=== PATIENT | male | born 1990 | race Caucasian/White ===

== ENCOUNTER 2019-12-08 20:51 | Emergency (ER) | payer OTHER, SELFPAY ==
[2019-12-08 20:53] VITALS: BP 139/67; PULSE 82; RESP 16; TEMP 36.4; O2SAT 100
--- NOTE | 2019-12-08 22:13 | ED_ITS ---
I attest that this documentation has been prepared under the direction and in the presence of Davey Palomo MD. Darío Reece, Ivisiblakhwinder 12/08/19;22:13 HPI - Dental/Oral General Chief complaint: Dental/Oral Stated complaint: dental pain Time Seen by Provider: 12/08/19 22:09 Source: patient Mode of arrival: ambulatory Limitations: no limitations History of Present Illness HPI Narrative: The pt is a 29 y/o male who presents to the ED c/o constant left- upper tooth pain onset [id number] today. Pt states that he messed up his tooth some time ago. Pt has not seen a dentist for this issue. Pt reports left-sided facial pain, but denies fever and chills. MD Complaint: tooth pain Onset (ago): hour(s) (12-12.5) Duration: constant Associated symptoms: other (Left-sided facial pain) Review of Systems Review of Systems: All systems reviewed & are unremarkable except as noted in HPI and below Constitutional: Constitutional: Denies chills and Denies fever(s) ENT: Reports other (Left-upper tooth pain) Musculoskeletal: Musculoskeletal: Reports other (Left-sided facial pain) PMFSH Past Medical History Medical History (Updated 12/08/19 @ 22:24 by Davey Palomo MD) No significant past medical history Surgical History Surgical History (Updated 12/08/19 @ 22:17 by Darío Reece) Surgical history unknown Social History Social History (Updated 12/08/19 @ 22:17 by Darío Reece) Smoking status: Unknown if ever smoked Exam Narrative: Exam Narrative: GENERAL: Well-appearing, well-nourished, and in no acute distress. HEAD: Normocephalic, atraumatic. EYES: PERRLA and EOMI. ENT: Nares clear, no rhinorrhea or epistaxis. Mucous membranes moist. No obvious dental abscess NECK: Supple. CHEST: Clear to auscultation. No respiratory distress. HEART: Regular rate and rhythm. No murmur heard. Normal peripheral pulses. ABDOMEN: Soft, nontender, nondistended, normal active bowel sounds. EXTREMITIES: Normal range of motion. No edema. SKIN: Warm, dry, no rash. NEURO: No focal deficits. Alert and oriented x3. PSYCH: Normal mood and affect. Course Vital Signs Vital signs: Vital Signs Temperature 36.4 C 12/08/19 20:53 Pulse Rate 82 12/08/19 20:53 Respiratory Rate 16 12/08/19 20:53 Blood Pressure 139/67 12/08/19 20:53 Pulse Oximetry 100 12/08/19 20:53 Temperature 36.4 C 12/08/19 20:53 Pulse Rate 82 12/08/19 20:53 Respiratory Rate 16 12/08/19 20:53 Blood Pressure 139/67 12/08/19 20:53 Pulse Oximetry 100 12/08/19 20:53 Discharge Plan Discharge Clinical Impression: Toothache Patient Disposition: Home, Self-Care Condition: Stable Instructions: Antibiotic Form, Toothache (ED) Prescriptions: New amoxicillin 875 mg tablet 875 mg PO Q12H Qty: 20 RF: 0 ibuprofen 600 mg tablet 600 mg PO TID PRN (Reason: pain) Qty: 20 RF: 0 Follow-up/Referrals: UNKNOWN,DOCTOR [Primary Care Provider] - Stand Alone Forms: Work/School Release IP Time of Disposition: 22:26 I personally performed the services described in this documentation. All medical record entries made by the scribe were at my direction and in my presence. I have reviewed the chart and discharge instructions and agree that the record
[2019-12-08] MEDS: KETOROLAC 30 MG/ML VIAL (*BKC) (22:49)
--- NOTE | 2019-12-09 00:29 | ED_ITS ---
HPI - Dental/Oral General Chief complaint: Dental/Oral Stated complaint: dental pain Time Seen by Provider: 12/08/19 22:09 Source: patient Mode of arrival: ambulatory Limitations: no limitations History of Present Illness MD Complaint: tooth pain Related Data Allergies Allergy/AdvReac Type Severity Reaction Status Date / Time No Known Allergies Allergy Verified 12/08/19 22:48 REPLACED BY [facility] Past Medical History Medical History (Updated 12/08/19 @ 22:24 by Davey Palomo MD) No significant past medical history Surgical History Surgical History (Updated 12/08/19 @ 22:17 by Darío Reece) Surgical history unknown Social History Social History (Updated 12/08/19 @ 22:17 by Darío Reece) Smoking status: Unknown if ever smoked Exam Narrative: Exam Narrative: GENERAL: Well-appearing, well-nourished, and in no acute distress. HEAD: Normocephalic, atraumatic. EYES: PERRLA and EOMI. ENT: Nares clear, no rhinorrhea or epistaxis. Mucous membranes moist.pain in the upper left molar NECK: Supple. CHEST: Clear to auscultation. No respiratory distress. HEART: Regular rate and rhythm. No murmur heard. Normal peripheral pulses. ABDOMEN: Soft, nontender, nondistended, normal active bowel sounds. EXTREMITIES: Normal range of motion. No edema. SKIN: Warm, dry, no rash. NEURO: No focal deficits. Alert and oriented x3. PSYCH: Normal mood and affect. Course Vital Signs Vital signs: Vital Signs Temperature 36.4 C 12/08/19 20:53 Pulse Rate 82 12/08/19 20:53 Respiratory Rate 16 12/08/19 20:53 Blood Pressure 139/67 12/08/19 20:53 Pulse Oximetry 100 12/08/19 20:53 Temperature 36.4 C 12/08/19 20:53 Pulse Rate 82 12/08/19 20:53 Respiratory Rate 16 12/08/19 20:53 Blood Pressure 139/67 12/08/19 20:53 Pulse Oximetry 100 12/08/19 20:53 Discharge Plan Discharge Clinical Impression: Toothache Patient Disposition: Home, Self-Care Condition: Stable Instructions: Antibiotic Form, Toothache (ED) Prescriptions: New amoxicillin 875 mg tablet 875 mg PO Q12H Qty: 20 RF: 0 ibuprofen 600 mg tablet 600 mg PO TID PRN (Reason: pain) Qty: 20 RF: 0 Follow-up/Referrals: UNKNOWN,DOCTOR [Primary Care Provider] - Stand Alone Forms: Work/School Release IP Time of Disposition: 22:26
== END 2019-12-08 22:49 | disposition home or self-care (01) ==
PROVIDERS: Emergency Provider Family Medicine
DX: K08.89 Other specified disorders of teeth and supporting structures (principal)
CPT/HCPCS: 99283; J1885